=== PATIENT | female | born 1955 | race African-American/Black ===

== ENCOUNTER 2017-04-17 19:30 | Outpatient (CLI) | payer OTHER | END 2017-04-17 19:31 | disposition home or self-care (01) | LOC: SLEEPLAB 19:30 | PROVIDERS: ATTEND Internal Medicine | DX: G47.33 Obstructive sleep apnea (adult) (pediatric) (principal); E11.9 Type 2 diabetes mellitus without complications; R09.02 Hypoxemia; I10 Essential (primary) hypertension; R51 Headache; R35.1 Nocturia | CPT/HCPCS: 95811 ==

== ENCOUNTER 2017-11-25 15:37 | Emergency (ER) | payer OTHER | END 2017-11-25 16:45 | disposition home or self-care (01) | LOC: ERS 15:37 | DX: F41.0 Panic disorder [episodic paroxysmal anxiety] (principal); E11.9 Type 2 diabetes mellitus without complications; J44.9 Chronic obstructive pulmonary disease, unspecified; I10 Essential (primary) hypertension; F17.210 Nicotine dependence, cigarettes, uncomplicated; Z79.82 Long term (current) use of aspirin; Z79.899 Other long term (current) drug therapy | CPT/HCPCS: 93005 ==

== ENCOUNTER 2018-08-10 14:46 | Outpatient (CLI) | payer OTHER ==
--- NOTE | 2018-08-10 15:13 | RAD ---
FOUR VIEWS LEFT KNEE: Comparison: None. History: Left knee pain. FINDINGS: Four views of the left knee shows no evidence of acute fracture or dislocation. A small knee effusion is seen. Mild degenerative changes are seen in all three compartments. IMPRESSION: Mild left knee degenerative change without acute osseous abnormality. POS: [facility]
== END 2018-08-10 14:47 | disposition home or self-care (01) ==
LOC: RAD-FRANK 14:46
PROVIDERS: ATTEND Nurse Practitioner
DX: M17.12 Unilateral primary osteoarthritis, left knee (principal)

== ENCOUNTER 2019-02-14 13:25 | Outpatient (CLI) | payer OTHER ==
--- NOTE | 2019-02-14 15:29 | CT ---
CT PULMONARY LUNG SCAN CHEST WITHOUT CONTRAST: 02/14/19 HISTORY: Personal history of nicotine dependence. Smoker. COMPARISON: CT chest 03/11/17. FINDINGS: Lung screening specific (lung-RADS): Negative. No suspicious pulmonary nodules per lung RADS criteria . Potentially significant incidental (lung RADS category S): Negative. Pulmonary incidentals: Mild centrilobular emphysema. There is multifocal scattered areas of periphera l pleural scarring which are unchanged from the comparison examinations. A few upper lobe predominant centrilobular ground glass nodules indicating respiratory bronchiolitis. There is a ground glass nod ule right middle lobe measuring 8 mm. Other incidentals: Mild mid thoracic spine degenerative changes. No displaced rib fracture. Subtle hy podensity in the superior pole of the left kidney is unchanged. IMPRESSION: 1. Lung RADS category 2: Benign appearance or behavior. Recommend continued annual screening wit h low dose CT in 12 months. 2. Lung RADS category S: Negative. No new or unknown potentially significant incidental findings requiring urgent additional evaluation. POS: [facility]
== END 2019-02-14 13:26 | disposition home or self-care (01) ==
LOC: CT 13:25
PROVIDERS: ATTEND Nurse Practitioner
DX: F17.210 Nicotine dependence, cigarettes, uncomplicated (principal)
CPT/HCPCS: G0297

== ENCOUNTER 2020-02-29 12:56 | Outpatient (CLI) | payer OTHER ==
--- NOTE | 2020-02-29 13:46 | CT ---
CT CHEST WITHOUT CONTRAST: 02/29/20 Axial tomograms obtained following a low dose screening protocol. INDICATIONS: History of nicotine dependence. Follow-up pulmonary nodules. COMPARISON: Comparison made to CT chest 02/14/19. FINDINGS: There is a new nodule in the medial right upper lobe seen on axial image 27 measuring 8 mm. This is a suspicious nodule given its appearance since last exam. Other scattered pulmonary nodules appear stable. A pleural based nodule in the right middle lobe vandana uring 8 mm is unchanged. There is a tiny 3 mm nodule in the right lung base stable. There is a 4 mm n odule in the posterior left lower lobe which is stable. The previously described chronic lung parench ymal changes are again noted. Mediastinum unremarkable. Osseous structures and upper abdomen unremark able and stable. IMPRESSION: A new 8 mm nodule in the right upper lobe since prior exam. This is a suspicious finding. This lesion is a lung RADS category 4B. Recommend further evaluation with PET scan. POS: [facility]
== END 2020-02-29 12:57 | disposition home or self-care (01) ==
LOC: BICCT 12:56
PROVIDERS: ATTEND Nurse Practitioner
DX: R91.8 Other nonspecific abnormal finding of lung field (principal); R91.1 Solitary pulmonary nodule
CPT/HCPCS: 71250

== ENCOUNTER 2020-06-20 09:46 | Outpatient (CLI) | payer OTHER ==
--- NOTE | 2020-06-20 13:38 | CT ---
CT THORAX WITHOUT IV CONTRAST: Date: 06/20/2020 INDICATION: Follow-up pulmonary nodule. COMPARISON: Prior CT of the thorax dated 02/29/2020, 02/14/2019, and 03/11/2017. FINDINGS: The 8 mm suspicious pulmonary nodule within the right lung apex identified on the comparison CT dated has reduced in size and now measures 4.0 mm and likely is related to an inflammatory nodul e. Subpleural pulmonary nodule within the right middle lobe measuring 7.0 mm is stable and benign. Th e 9.0 mm subpleural pulmonary nodule in the right lower lobe is stable and benign. The 4.0 mm pulmona ry nodule in the left lower lobe is stable and benign. No new suspicious pulmonary nodule is evident. There is slightly more pronounced subsegmental volume loss in the lingula. There are scattered vasc ular calcifications. There are stable bilateral adrenal adenomas. The gallbladder is surgically absen t. There is scattered degenerative and osteoarthritic change. No definite acute osseous abnormality i s evident. IMPRESSION: 1. Decrease in size of the right apical pulmonary nodule likely reflecting an inflammatory nodule. 2. Stable bilateral pulmonary nodules, stable since 2016, and considered benign. 3. Stable bilateral adrenal adenomas. 4. Other chronic findings as above. POS: [facility]
== END 2020-06-20 09:47 | disposition home or self-care (01) ==
LOC: BICCT 09:46
PROVIDERS: ATTEND Internal Medicine Critical Care Medicine
DX: R91.8 Other nonspecific abnormal finding of lung field (principal); D35.02 Benign neoplasm of left adrenal gland; D35.01 Benign neoplasm of right adrenal gland; I70.90 Unspecified atherosclerosis; M19.90 Unspecified osteoarthritis, unspecified site; Z90.49 Acquired absence of other specified parts of digestive tract
CPT/HCPCS: 71250

== ENCOUNTER 2020-12-23 09:21 | Outpatient (CLI) | payer OTHER | END 2020-12-23 09:22 | disposition home or self-care (01) | LOC: BICCT 09:21 | PROVIDERS: ATTEND Internal Medicine Critical Care Medicine | DX: R91.1 Solitary pulmonary nodule (principal); J44.9 Chronic obstructive pulmonary disease, unspecified | CPT/HCPCS: 71250 ==

== ENCOUNTER 2021-06-23 13:13 | Outpatient (CLI) | payer OTHER | END 2021-06-23 13:14 | disposition home or self-care (01) | LOC: BICMAMMO 13:13 | PROVIDERS: ATTEND Nurse Practitioner | DX: Z12.31 Encounter for screening mammogram for malignant neoplasm of breast (principal) | CPT/HCPCS: 77063; 77067 ==

== ENCOUNTER 2022-04-06 15:50 | Inpatient (IN) | payer MEDICARE, OTHER ==
[~2022-04-06 15:50] MED LIST: Iopamidol-370 76% 500 ML 1 ML ONE
[2022-04-06 16:25] LABS: #Eosinphils 0.1 thou/uL (0.0-0.7); #Lymphocytes 1.5 thou/uL (1.20-3.40); #Monocytes 0.5 thou/uL (0.11-0.59); #Neutrophils 3.9 thou/uL (1.40-6.50); %Basophils 0.6 % (0.0-1.0); %Eosinophils 1.1 % (0.0-10.0); %Lymphocytes 24.7 % (21.0-51.0); %Monocytes 7.6 % (0.0-10.0); Hemoglobin 15.8 g/dL (12.0-16.0); Mean Corpuscular HGB CONC 29.6 g/dL (32.0-36.0); Mean Corpuscular Hemoglobin 25.2 pg (27.0-31.0); Mean Corpuscular Volume 85.3 fL (78.0-98.0); Mean Platelet Volume 11.9 fL (7.4-10.4); Platelet Count 154 thou/uL (130-400); RBC Distribution Width 17.7 % (11.5-14.5); Red Blood Cell (RBC) Count 6.27 mill/uL (4.20-5.40); White Blood Cell (WBC) Count 5.9 thou/uL (4.8-10.8)
[2022-04-06 16:44] LABS: ALT (SGPT) 10 U/L (8-55); AST (SGOT) 11 U/L (5-34); Albumin 3.9 g/dL (3.4-4.8); Alkaline Phosphatase 105 U/L (40-110); Anion Gap 18 mmol/L (10-20); BUN (Urea Nitrogen) 19 mg/dL (9.8-20.1); Bilirubin, Total 1.5 mg/dL (0.2-1.2); Calc. Creatinine Clearance 0 mL/min (70-130); Calcium 9.8 mg/dL (7.8-10.44); Carbon Dioxide 27 mmol/L (23-31); Chloride 99 mmol/L (98-107); Estimated GFR 46; Globulin 3.2 g/dL (2.4-3.5); Glucose 174 mg/dL (80-115); Potassium 4.2 mmol/L (3.5-5.1); Protein, Total 7.1 g/dL (5.8-8.1); Sodium 140 mmol/L (136-145)
[2022-04-06] MEDS ORDERED: Furosemide 40 MG/4 ML VIAL ONE (18:27)
[2022-04-06 20:06] LABS: Lactic Acid 1.5 mmol/L (0.5-2.2)
[2022-04-06] MEDS ORDERED: Acetaminophen 325 MG TAB PO PRN (21:32)
[2022-04-06] MEDS ORDERED: Ondansetron PF 4 MG/2 ML Vial IVP PRN (21:32)
[2022-04-06] MEDS ORDERED: HumaLOG 300 UNITS/3 ML VIAL SC PRN (21:35)
[2022-04-06] MEDS ORDERED: Dextrose 5% in Water 1,000 ML IV PRN (21:35)
[2022-04-06] MEDS ORDERED: Dextrose 50% Abboject 50 ML SYRINGE SLOW IVP PRN (21:35)
[2022-04-07 00:14] VITALS: BMI 29.7
[2022-04-07 05:02] LABS: #Eosinphils 0.1 thou/uL (0.0-0.7); #Lymphocytes 1.4 thou/uL (1.20-3.40); #Monocytes 0.5 thou/uL (0.11-0.59); #Neutrophils 4.5 thou/uL (1.40-6.50); %Basophils 0.6 % (0.0-1.0); %Eosinophils 1.4 % (0.0-10.0); %Lymphocytes 21.2 % (21.0-51.0); %Neutrophils 68.8 % (42.0-75.0); Hemoglobin 15.6 g/dL (12.0-16.0); Mean Corpuscular HGB CONC 30.3 g/dL (32.0-36.0); Mean Corpuscular Hemoglobin 25.9 pg (27.0-31.0); Mean Corpuscular Volume 85.8 fL (78.0-98.0); Mean Platelet Volume 11.3 fL (7.4-10.4); Platelet Count 147 thou/uL (130-400); RBC Distribution Width 17.9 % (11.5-14.5); Red Blood Cell (RBC) Count 5.99 mill/uL (4.20-5.40); White Blood Cell (WBC) Count 6.5 thou/uL (4.8-10.8)
[2022-04-07 05:14] LABS: Anion Gap 15 mmol/L (10-20); BUN (Urea Nitrogen) 21 mg/dL (9.8-20.1); Calc. Creatinine Clearance 51 mL/min (70-130); Calcium 10.2 mg/dL (7.8-10.44); Carbon Dioxide 35 mmol/L (23-31); Chloride 95 mmol/L (98-107); Estimated GFR 42; Glucose 190 mg/dL (80-115); Sodium 141 mmol/L (136-145)
[2022-04-07] MEDS ORDERED: Furosemide 40 MG/4 ML VIAL SLOW IVP SCH (06:00)
[2022-04-07] MEDS: Heparin 5,000 UNITS/ML VIAL SC SCH ×2 (11:21→20:38)
[2022-04-07] MEDS ORDERED: Non-Formulary Item 1 EACH (Albuterol Sulfate [Proair Digihaler] 90 MCG Aer.Pw.Bas) INH SCH (13:30)
[2022-04-07] MEDS ORDERED: Electrolyte Replacement Protocol FS PRN (14:15)
[2022-04-07] MEDS ORDERED: predniSONE 20 MG TAB PO SCH (16:45)
[2022-04-07] MEDS: Azithromycin 500 MG in Sodium Chloride 0.9% 250 ML 250 ML IVPB SCH (17:51)
[2022-04-07] MEDS: Carvedilol 6.25 MG TAB PO SCH (17:51)
[2022-04-07] MEDS: Mometasone/Formoterol 200/5 60 PUFF INH SCH (19:19)
[2022-04-07] MEDS: guaiFENesin ER 600 MG TAB PO SCH (20:38)
[2022-04-07] MEDS: Atorvastatin Calcium 20 MG TAB PO SCH (20:39)
[2022-04-08 05:25] LABS: ALT (SGPT) 7 U/L (8-55); AST (SGOT) 8 U/L (5-34); Albumin 3.7 g/dL (3.4-4.8); Alkaline Phosphatase 96 U/L (40-110); Anion Gap 18 mmol/L (10-20); BUN (Urea Nitrogen) 19 mg/dL (9.8-20.1); Bilirubin, Total 1.2 mg/dL (0.2-1.2); Calc. Creatinine Clearance 60 mL/min (70-130); Calcium 9.9 mg/dL (7.8-10.44); Carbon Dioxide 34 mmol/L (23-31); Chloride 94 mmol/L (98-107); Estimated GFR 51; Globulin 3.3 g/dL (2.4-3.5); Glucose 217 mg/dL (80-115); Magnesium 1.5 mg/dL (1.6-2.6); Potassium 4.5 mmol/L (3.5-5.1); Sodium 141 mmol/L (136-145)
[2022-04-08 05:30] LABS: #Lymphocytes 0.7 thou/uL (1.20-3.40); #Monocytes 0.2 thou/uL (0.11-0.59); #Neutrophils 3.8 thou/uL (1.40-6.50); %Eosinophils 0.3 % (0.0-10.0); %Lymphocytes 14.4 % (21.0-51.0); %Monocytes 4.2 % (0.0-10.0); %Neutrophils 81.1 % (42.0-75.0); Hemoglobin 15.8 g/dL (12.0-16.0); Mean Corpuscular Hemoglobin 25.8 pg (27.0-31.0); Mean Corpuscular Volume 86.2 fL (78.0-98.0); Mean Platelet Volume 11.5 fL (7.4-10.4); Platelet Count 163 thou/uL (130-400); RBC Distribution Width 17.5 % (11.5-14.5); Red Blood Cell (RBC) Count 6.13 mill/uL (4.20-5.40); White Blood Cell (WBC) Count 4.7 thou/uL (4.8-10.8)
[2022-04-08] MEDS: HumaLOG 300 UNITS/3 ML VIAL SC PRN ×4 (06:49→22:13)
[2022-04-08] MEDS: Mometasone/Formoterol 200/5 60 PUFF INH SCH ×2 (07:09→18:55)
[2022-04-08] MEDS ORDERED: Magnesium 2 GM/50 ML(in water) 2 GM in Premix Bag 1 BAG IVPB SCH (08:00)
[2022-04-08] MEDS ORDERED: Cholecalciferol (Vitamin D3) 400 UNITS TAB PO SCH (09:00)
[2022-04-08] MEDS ORDERED: Furosemide 40 MG/4 ML VIAL SLOW IVP SCH (09:00)
[2022-04-08] MEDS: Carvedilol 6.25 MG TAB PO SCH ×2 (09:17→16:51)
[2022-04-08] MEDS: Cyanocobalamin (Vitamin B-12) 1,000 MCG TAB PO SCH (09:18)
[2022-04-08] MEDS: Cholecalciferol 1,000 UNITS (25 MCG) TAB PO SCH (09:18)
[2022-04-08] MEDS: Heparin 5,000 UNITS/ML VIAL SC SCH ×2 (09:18→20:39)
[2022-04-08] MEDS: guaiFENesin ER 600 MG TAB PO SCH ×2 (09:18→20:39)
[2022-04-08] MEDS: Furosemide 20 MG TAB PO SCH (09:19)
[2022-04-08] MEDS: Ferrous Sulfate 325 MG TAB PO SCH (09:19)
[2022-04-08] MEDS: Loratadine 10 MG TAB PO SCH (09:19)
[2022-04-08] MEDS: Fluticasone Propionate Nasal Spray 16 gm Bottle NASAL SCH (09:19)
[2022-04-08] MEDS: Amlodipine 10 MG TAB PO SCH (09:19)
[2022-04-08] MEDS: Famotidine 20 MG TAB PO SCH (09:19)
[2022-04-08] MEDS: Aspirin 81 mg Enteric Coated Tablet PO SCH (09:19)
[2022-04-08] MEDS: predniSONE 20 MG TAB PO SCH (09:19)
[2022-04-08] MEDS ORDERED: Insulin Glargine 30 UNITS/0.3 ML VIAL SC SCH (14:30)
[2022-04-08] MEDS: Azithromycin 500 MG in Sodium Chloride 0.9% 250 ML 250 ML IVPB SCH (16:51)
[2022-04-08] MEDS: Atorvastatin Calcium 20 MG TAB PO SCH (20:39)
[2022-04-09 05:18] LABS: #Lymphocytes 0.7 thou/uL (1.20-3.40); #Monocytes 0.4 thou/uL (0.11-0.59); #Neutrophils 3.8 thou/uL (1.40-6.50); %Eosinophils 0.1 % (0.0-10.0); %Lymphocytes 13.3 % (21.0-51.0); %Monocytes 8.9 % (0.0-10.0); %Neutrophils 77.7 % (42.0-75.0); Hemoglobin 15.6 g/dL (12.0-16.0); Mean Corpuscular Hemoglobin 25.8 pg (27.0-31.0); Mean Corpuscular Volume 86.1 fL (78.0-98.0); Mean Platelet Volume 11.9 fL (7.4-10.4); Platelet Count 172 thou/uL (130-400); RBC Distribution Width 17.4 % (11.5-14.5); Red Blood Cell (RBC) Count 6.06 mill/uL (4.20-5.40); White Blood Cell (WBC) Count 4.9 thou/uL (4.8-10.8)
[2022-04-09 05:34] LABS: Anion Gap 16 mmol/L (10-20); BUN (Urea Nitrogen) 25 mg/dL (9.8-20.1); Calc. Creatinine Clearance 62 mL/min (70-130); Calcium 10.5 mg/dL (7.8-10.44); Carbon Dioxide 31 mmol/L (23-31); Chloride 95 mmol/L (98-107); Estimated GFR 54; Glucose 235 mg/dL (80-115); Magnesium 2.2 mg/dL (1.6-2.6); Potassium 4.6 mmol/L (3.5-5.1); Sodium 137 mmol/L (136-145)
[2022-04-09] MEDS: HumaLOG 300 UNITS/3 ML VIAL SC PRN ×4 (06:21→21:17)
[2022-04-09] MEDS: Mometasone/Formoterol 200/5 60 PUFF INH SCH ×2 (07:08→19:11)
[2022-04-09] MEDS ORDERED: Insulin Glargine 30 UNITS/0.3 ML VIAL SC SCH (09:00)
[2022-04-09] MEDS: Aspirin 81 mg Enteric Coated Tablet PO SCH (09:03)
[2022-04-09] MEDS: Amlodipine 10 MG TAB PO SCH (09:03)
[2022-04-09] MEDS: Spironolactone 25 MG TAB PO SCH (09:03)
[2022-04-09] MEDS: Carvedilol 6.25 MG TAB PO SCH ×2 (09:03→17:12)
[2022-04-09] MEDS: Cholecalciferol 1,000 UNITS (25 MCG) TAB PO SCH (09:03)
[2022-04-09] MEDS: predniSONE 20 MG TAB PO SCH (09:03)
[2022-04-09] MEDS: Ferrous Sulfate 325 MG TAB PO SCH (09:03)
[2022-04-09] MEDS: Cyanocobalamin (Vitamin B-12) 1,000 MCG TAB PO SCH (09:04)
[2022-04-09] MEDS: guaiFENesin ER 600 MG TAB PO SCH ×2 (09:04→21:17)
[2022-04-09] MEDS: Furosemide 20 MG TAB PO SCH (09:04)
[2022-04-09] MEDS: Famotidine 20 MG TAB PO SCH (09:04)
[2022-04-09] MEDS: Loratadine 10 MG TAB PO SCH (09:04)
[2022-04-09] MEDS: Heparin 5,000 UNITS/ML VIAL SC SCH ×2 (09:04→21:17)
[2022-04-09] MEDS: Fluticasone Propionate Nasal Spray 16 gm Bottle NASAL SCH (09:05)
[2022-04-09] MEDS: Azithromycin 500 MG in Sodium Chloride 0.9% 250 ML 250 ML IVPB SCH (17:13)
[2022-04-09] MEDS: Empagliflozin 25 MG TAB PO SCH (21:16)
[2022-04-09] MEDS: metFORMIN 500 MG TAB PO SCH (21:16)
[2022-04-09] MEDS: Insulin Glargine 30 UNITS/0.3 ML VIAL SC SCH (21:17)
[2022-04-09] MEDS: Atorvastatin Calcium 20 MG TAB PO SCH (21:17)
[2022-04-10 05:12] LABS: Anion Gap 14 mmol/L (10-20); BUN (Urea Nitrogen) 22 mg/dL (9.8-20.1); Calc. Creatinine Clearance 68 mL/min (70-130); Calcium 10.5 mg/dL (7.8-10.44); Carbon Dioxide 33 mmol/L (23-31); Chloride 97 mmol/L (98-107); Estimated GFR 59; Glucose 171 mg/dL (80-115); Potassium 4.5 mmol/L (3.5-5.1); Sodium 139 mmol/L (136-145)
[2022-04-10] MEDS ORDERED: Magnesium 2 GM/50 ML(in water) 2 GM in Premix Bag 1 BAG IVPB SCH (06:00)
[2022-04-10] MEDS: Mometasone/Formoterol 200/5 60 PUFF INH SCH (06:42)
[2022-04-10] MEDS: Carvedilol 6.25 MG TAB PO SCH (08:07)
[2022-04-10] MEDS: Ferrous Sulfate 325 MG TAB PO SCH (08:08)
[2022-04-10] MEDS: Spironolactone 25 MG TAB PO SCH (08:09)
[2022-04-10] MEDS: predniSONE 20 MG TAB PO SCH (08:09)
[2022-04-10] MEDS: Amlodipine 10 MG TAB PO SCH (08:10)
[2022-04-10] MEDS: Aspirin 81 mg Enteric Coated Tablet PO SCH (08:10)
[2022-04-10] MEDS: Cholecalciferol 1,000 UNITS (25 MCG) TAB PO SCH (08:11)
[2022-04-10] MEDS: Empagliflozin 25 MG TAB PO SCH (08:12)
[2022-04-10] MEDS: Cyanocobalamin (Vitamin B-12) 1,000 MCG TAB PO SCH (08:12)
[2022-04-10] MEDS: Furosemide 20 MG TAB PO SCH (08:13)
[2022-04-10] MEDS: Famotidine 20 MG TAB PO SCH (08:13)
[2022-04-10] MEDS: Heparin 5,000 UNITS/ML VIAL SC SCH (08:14)
[2022-04-10] MEDS: guaiFENesin ER 600 MG TAB PO SCH (08:14)
[2022-04-10] MEDS: Insulin Glargine 30 UNITS/0.3 ML VIAL SC SCH (08:15)
[2022-04-10] MEDS: metFORMIN 500 MG TAB PO SCH (08:16)
[2022-04-10] MEDS: Loratadine 10 MG TAB PO SCH (08:16)
[2022-04-10] MEDS: Fluticasone Propionate Nasal Spray 16 gm Bottle NASAL SCH (08:25)
[2022-04-10] MEDS: HumaLOG 300 UNITS/3 ML VIAL SC PRN (12:34)
[2022-04-10 16:34] VITALS: BP 103/61; TEMP 97.6
== END 2022-04-10 17:10 | disposition home or self-care (01) | DRG 291 ==
LOC: ERS 15:50 → ERHOLD 18:31 → OBSVTOIN 21:33 → 2SW 21:53
PROVIDERS: ADMIT Internal Medicine; ATTEND Internal Medicine
PROC: 5A09357 Assistance with Respiratory Ventilation, Less than 24 Consecutive Hours, Continuous Positive Airway Pressure (ICD-10-PCS; principal; 2022-04-06)
DX: I13.0 Hypertensive heart and chronic kidney disease with heart failure and stage 1 through stage 4 chronic kidney disease, or unspecified chronic kidney disease (principal); Z20.822 Contact with and (suspected) exposure to COVID-19; Z51.5 Encounter for palliative care; I50.33 Acute on chronic diastolic (congestive) heart failure; J96.21 Acute and chronic respiratory failure with hypoxia; J44.1 Chronic obstructive pulmonary disease with (acute) exacerbation; N17.9 Acute kidney failure, unspecified; E87.2 Acidosis; J96.12 Chronic respiratory failure with hypercapnia; G47.33 Obstructive sleep apnea (adult) (pediatric); E78.5 Hyperlipidemia, unspecified; N18.30 Chronic kidney disease, stage 3 unspecified; E83.42 Hypomagnesemia; E11.65 Type 2 diabetes mellitus with hyperglycemia; T38.0X5A Adverse effect of glucocorticoids and synthetic analogues, initial encounter; E11.22 Type 2 diabetes mellitus with diabetic chronic kidney disease; R74.8 Abnormal levels of other serum enzymes; Z28.21 Immunization not carried out because of patient refusal; Z99.81 Dependence on supplemental oxygen; Z99.89 Dependence on other enabling machines and devices; Z87.891 Personal history of nicotine dependence; Z90.49 Acquired absence of other specified parts of digestive tract; Z98.51 Tubal ligation status; Z82.49 Family history of ischemic heart disease and other diseases of the circulatory system
CPT/HCPCS: 36415; 36416; 71045; 71275; 80048; 80053; 83605; 83735; 83880; 84484; 85025; 87040; 93005; 94640; 94660; J0456; J1644; J1815; J1940; J3475; J7050; J7512; J7620; Q9967; U0003; U0005

== ENCOUNTER 2022-05-05 13:11 | Outpatient (CLI) | payer MEDICARE, OTHER | END 2022-05-05 13:12 | disposition home or self-care (01) | LOC: RAD 13:11 | PROVIDERS: ATTEND Internal Medicine Critical Care Medicine | DX: I50.32 Chronic diastolic (congestive) heart failure (principal) | CPT/HCPCS: 71046 ==

== ENCOUNTER 2023-02-10 12:10 | Outpatient (CLI) | payer MEDICARE, OTHER | END 2023-02-10 12:11 | disposition home or self-care (01) | LOC: RAD 12:10 | PROVIDERS: ATTEND Internal Medicine Critical Care Medicine | DX: R06.00 Dyspnea, unspecified (principal) | CPT/HCPCS: 71046 ==

== ENCOUNTER 2023-05-10 07:39 | Inpatient (IN) | payer MEDICARE, OTHER ==
[2023-05-10] MEDS ORDERED: cefTRIAXone (ROCEPHIN) 2 GM VIAL ONE (08:16)
[2023-05-10] MEDS ORDERED: Ipratropium/Albuterol 3 ML NEB ONE (08:28)
[2023-05-10 08:30] LABS: Hematocrit 54.1 % (36.0-47.0); Hemoglobin 15.1 g/dL (12.0-16.0); Mean Corpuscular HGB CONC 27.9 g/dL (32.0-36.0); Mean Corpuscular Hemoglobin 25.1 pg (27.0-31.0); Mean Corpuscular Volume 89.9 fl (78.0-98.0); Mean Platelet Volume 11.5 fL (7.4-10.4); Platelet Count 200 10x3/uL (130-400); RBC Distribution Width 18.9 % (11.5-14.5); Red Blood Cell (RBC) Count 6.02 mill/uL (4.20-5.40); White Blood Cell (WBC) Count 6.5 10x3/uL (4.8-10.8)
[2023-05-10 08:56] LABS: Actual Bicarbonate (HCO3v) 27.9 mEq/L (22-28); Analyzer IN Cardio ER; Base Excess -2.2 mEq/L (-2.0 to +3.0); Chloride (VBG) 100 mmol/L (98-106); Hematocrit-VBG 48 % (36.0-47.0); Hemoglobin (Hb) 16.4 g/dL (11.7-16.1); Potassium (VBG) 4.05 mmol/L (3.70-5.30); Sodium 140 mmol/L (133-146)
[2023-05-10 08:57] LABS: Delete Auto Diff?? YES; Manual Diff?? YES
[2023-05-10 08:58] LABS: ALT (SGPT) 24 U/L (8-55); AST (SGOT) 26 U/L (5-34); Albumin 3.6 g/dL (3.4-4.8); Alkaline Phosphatase 136 U/L (40-110); Anion Gap 15 mmol/L (10-20); BUN (Urea Nitrogen) 17 mg/dL (9.8-20.1); Bilirubin, Total 1.2 mg/dL (0.2-1.2); Calc. Creatinine Clearance 0 mL/min (70-130); Calcium 9.4 mg/dL (7.8-10.44); Carbon Dioxide 27 mmol/L (23-31); Chloride 102 mmol/L (98-107); Estimated GFR 44; Globulin 2.8 g/dL (2.4-3.5); Glucose 235 mg/dL (80-115); Magnesium 1.5 mg/dL (1.6-2.6); Potassium 4.1 mmol/L (3.5-5.1); Protein, Total 6.4 g/dL (5.8-8.1); Sodium 140 mmol/L (136-145)
[2023-05-10 09:01] LABS: Troponin I 0.042 ng/mL (< 0.028)
[2023-05-10 09:37] LABS: Band 6 % (5-11); Lymphocytes 6 % (21-51); Monocytes 10 % (0-10); Neutrophil 78 % (42-75); Nucleated RBC (Manual Ct) 2 % (0)
[2023-05-10 09:38] LABS: Platelet Adequacy Comment Appears Adequate; RBC Morph Comment Within Normal Limits
[2023-05-10] MEDS ORDERED: Magnesium 2 GM/50 ML BAG (IN WATER) ONE (09:38)
[2023-05-10] MEDS ORDERED: Furosemide 40 MG/4 ML VIAL ONE (10:07)
[2023-05-10] MEDS ORDERED: Acetaminophen 325 MG TAB PO PRN (10:41)
[2023-05-10] MEDS ORDERED: HYDROcodone/Acetaminophen 5/325 mg Tablet PO PRN (10:41)
[2023-05-10] MEDS ORDERED: Ondansetron PF 4 MG/2 ML Vial IVP PRN (10:41)
[2023-05-10] MEDS ORDERED: Senokot S 8.6-50 MG TAB PO PRN (10:41)
[2023-05-10] MEDS ORDERED: Ipratropium/Albuterol 3 ML NEB NEB PRN (10:44)
[2023-05-10] MEDS ORDERED: Dextrose 50% Abboject 50 ML SYRINGE SLOW IVP PRN (10:59)
[2023-05-10] MEDS ORDERED: Glucagon 1 MG/ML KIT IM PRN (10:59)
[2023-05-10] MEDS ORDERED: Dextrose 5% in Water 1,000 ML IV PRN (10:59)
[2023-05-10] MEDS ORDERED: Albumin 25% 25 GM/100 ML BOT IVPB SCH (11:00)
[2023-05-10 11:42] LABS: Troponin I 0.038 ng/mL (< 0.028)
[2023-05-10] MEDS ORDERED: FLU VACC QS2023(65UP)/MF59C/PF 60 MCG/0.5 ML SYRINGE IM ONE (12:30)
[2023-05-10] MEDS: Cefepime 1 GM in Sodium Chloride 0.9% 100 ML IVPB SCH (12:35)
[2023-05-10] MEDS: methylPREDNISolone Sod Succ 40 MG VIAL IVP SCH ×2 (13:01→20:39)
[2023-05-10] MEDS: Furosemide 40 MG/4 ML VIAL SLOW IVP SCH (13:01)
[2023-05-10] MEDS: Ipratropium/Albuterol 3 ML NEB NEB SCH ×3 (14:04→21:42)
[2023-05-10 14:40] LABS: Troponin I 0.027 ng/mL (< 0.028)
[2023-05-10 17:09] LABS: Actual Bicarbonate (HCO3v) 27.2 mEq/L (22-28); Base Excess -0.5 mEq/L (-2.0 to +3.0); Calcium, Ionized (venous) 1.11 mmol/L (1.16-1.32); Chloride (VBG) 102 mmol/L (98-106); Hematocrit-VBG 47 % (36.0-47.0); Hemoglobin (Hb) 16.1 g/dL (11.7-16.1); Potassium (VBG) 4.64 mmol/L (3.70-5.30); Sodium 141 mmol/L (133-146)
[2023-05-10] MEDS: Famotidine/PF 20 mg/2ml Vial SLOW IVP SCH (20:39)
[2023-05-10] MEDS: guaiFENesin ER 600 MG TAB PO SCH (20:39)
[2023-05-10] MEDS: HumaLOG 300 UNITS/3 ML VIAL SC PRN (21:31)
[2023-05-11] MEDS: Cefepime 1 GM in Sodium Chloride 0.9% 100 ML IVPB SCH ×3 (00:28→23:55)
[2023-05-11] MEDS: Ipratropium/Albuterol 3 ML NEB NEB SCH ×6 (01:49→23:56)
[2023-05-11 04:00] LABS: Actual Bicarbonate (HCO3v) 27.1 mEq/L (22-28); Base Excess -1.9 mEq/L (-2.0 to +3.0); Calcium, Ionized (venous) 1.23 mmol/L (1.16-1.32); Chloride (VBG) 102 mmol/L (98-106); Hematocrit-VBG 50 % (36.0-47.0); Hemoglobin (Hb) 17.1 g/dL (11.7-16.1); Potassium (VBG) 4.28 mmol/L (3.70-5.30); Sodium 143 mmol/L (133-146)
[2023-05-11 04:32] LABS: Anion Gap 19 mmol/L (10-20); BUN (Urea Nitrogen) 23 mg/dL (9.8-20.1); Calc. Creatinine Clearance 52 mL/min (70-130); Calcium 9.8 mg/dL (7.8-10.44); Carbon Dioxide 24 mmol/L (23-31); Chloride 103 mmol/L (98-107); Estimated GFR 39; Glucose 207 mg/dL (80-115); Potassium 4.3 mmol/L (3.5-5.1); Sodium 142 mmol/L (136-145)
[2023-05-11 04:38] LABS: #Monocytes 0.1 thou/uL (0.11-0.59); #Neutrophils 4.6 thou/uL (1.40-6.50); %Basophils 0.2 % (0.0-1.0); %Lymphocytes 8.5 % (21.0-51.0); %Monocytes 1.5 % (0.0-10.0); %Neutrophils 89.2 % (42.0-75.0); Hematocrit 56.8 % (36.0-47.0); Hemoglobin 15.7 g/dL (12.0-16.0); Mean Corpuscular HGB CONC 27.6 g/dL (32.0-36.0); Mean Corpuscular Hemoglobin 24.7 pg (27.0-31.0); Mean Corpuscular Volume 89.4 fl (78.0-98.0); Mean Platelet Volume 11.7 fL (7.4-10.4); Platelet Count 185 10x3/uL (130-400); RBC Distribution Width 19.3 % (11.5-14.5); Red Blood Cell (RBC) Count 6.35 mill/uL (4.20-5.40); White Blood Cell (WBC) Count 5.2 10x3/uL (4.8-10.8)
[2023-05-11 05:09] VITALS: BMI 31.5
[2023-05-11] MEDS: Furosemide 40 MG/4 ML VIAL SLOW IVP SCH ×3 (05:42→15:19)
[2023-05-11] MEDS: methylPREDNISolone Sod Succ 40 MG VIAL IVP SCH ×2 (05:42→10:56)
[2023-05-11] MEDS: HumaLOG 300 UNITS/3 ML VIAL SC PRN ×4 (06:42→23:54)
[2023-05-11] MEDS: Famotidine/PF 20 mg/2ml Vial SLOW IVP SCH ×2 (07:59→19:47)
[2023-05-11] MEDS: guaiFENesin ER 600 MG TAB PO SCH ×2 (07:59→19:47)
[2023-05-12] MEDS: Ipratropium/Albuterol 3 ML NEB NEB SCH ×4 (01:59→16:54)
[2023-05-12] MEDS: Furosemide 40 MG/4 ML VIAL SLOW IVP SCH ×2 (06:32→14:16)
[2023-05-12] MEDS: Famotidine/PF 20 mg/2ml Vial SLOW IVP SCH (09:09)
[2023-05-12] MEDS: methylPREDNISolone Sod Succ 40 MG VIAL IVP SCH (09:09)
[2023-05-12] MEDS: guaiFENesin ER 600 MG TAB PO SCH (09:09)
[2023-05-12 09:33] LABS: #Monocytes 0.6 thou/uL (0.11-0.59); #Neutrophils 5.3 thou/uL (1.40-6.50); %Basophils 0.1 % (0.0-1.0); %Eosinophils 0.3 % (0.0-10.0); %Lymphocytes 14.6 % (21.0-51.0); %Monocytes 8.9 % (0.0-10.0); %Neutrophils 75.8 % (42.0-75.0); Hemoglobin 15.6 g/dL (12.0-16.0); Mean Corpuscular HGB CONC 28.9 g/dL (32.0-36.0); Mean Corpuscular Hemoglobin 24.6 pg (27.0-31.0); Mean Corpuscular Volume 85.2 fl (78.0-98.0); Mean Platelet Volume 11.3 fL (7.4-10.4); Platelet Count 187 10x3/uL (130-400); RBC Distribution Width 19.1 % (11.5-14.5); Red Blood Cell (RBC) Count 6.34 mill/uL (4.20-5.40)
[2023-05-12 09:54] LABS: Anion Gap 15 mmol/L (10-20); BUN (Urea Nitrogen) 33 mg/dL (9.8-20.1); Calc. Creatinine Clearance 48 mL/min (70-130); Calcium 10.4 mg/dL (7.8-10.44); Carbon Dioxide 29 mmol/L (23-31); Chloride 100 mmol/L (98-107); Estimated GFR 35; Glucose 264 mg/dL (80-115); Potassium 3.8 mmol/L (3.5-5.1); Sodium 140 mmol/L (136-145)
[2023-05-12 11:04] LABS: Burr Cells MARKED = >16 cells HPF (0-1); CellaVision Operator ID LAB.GE; Platelet Adequacy Comment Platelets Normal; Polychromasia MODERATE = 3-4 cells HPF (0-2)
[2023-05-12] MEDS: Cefepime 1 GM in Sodium Chloride 0.9% 100 ML IVPB SCH (11:04)
[2023-05-12] MEDS: HumaLOG 300 UNITS/3 ML VIAL SC PRN ×2 (11:10→16:08)
[2023-05-12 15:42] VITALS: BP 125/69; TEMP 97.7
[2023-05-13] MEDS ORDERED: Famotidine/PF 20 mg/2ml Vial SLOW IVP SCH (09:00)
== END 2023-05-12 16:35 | disposition home or self-care (01) | DRG 193 ==
LOC: ERS 07:39 → IMCU/EMU 09:45 → T4-B 05-11 18:20 → IMCU/EMU 05-11 18:21 → T4-B 05-11 21:09
PROVIDERS: ADMIT Family Medicine; ATTEND Internal Medicine
PROC: 5A09357 Assistance with Respiratory Ventilation, Less than 24 Consecutive Hours, Continuous Positive Airway Pressure (ICD-10-PCS; principal; 2023-05-10)
PROC: 30233J1 Transfusion of Nonautologous Serum Albumin into Peripheral Vein, Percutaneous Approach (ICD-10-PCS; 2023-05-10)
DX: J18.9 Pneumonia, unspecified organism (principal); G93.41 Metabolic encephalopathy; I50.33 Acute on chronic diastolic (congestive) heart failure; J96.21 Acute and chronic respiratory failure with hypoxia; J96.22 Acute and chronic respiratory failure with hypercapnia; I13.0 Hypertensive heart and chronic kidney disease with heart failure and stage 1 through stage 4 chronic kidney disease, or unspecified chronic kidney disease; J44.1 Chronic obstructive pulmonary disease with (acute) exacerbation; J44.0 Chronic obstructive pulmonary disease with (acute) lower respiratory infection; Z96.651 Presence of right artificial knee joint; E66.01 Morbid (severe) obesity due to excess calories; G47.33 Obstructive sleep apnea (adult) (pediatric); I25.10 Atherosclerotic heart disease of native coronary artery without angina pectoris; I27.21 Secondary pulmonary arterial hypertension; N18.30 Chronic kidney disease, stage 3 unspecified; E11.22 Type 2 diabetes mellitus with diabetic chronic kidney disease; T50.2X5A Adverse effect of carbonic-anhydrase inhibitors, benzothiadiazides and other diuretics, initial encounter; Z98.890 Other specified postprocedural states; Z90.49 Acquired absence of other specified parts of digestive tract; Z99.81 Dependence on supplemental oxygen; Z79.82 Long term (current) use of aspirin; Z79.51 Long term (current) use of inhaled steroids; Z87.891 Personal history of nicotine dependence; Z79.4 Long term (current) use of insulin; Z79.899 Other long term (current) drug therapy; Z91.199 Patient's noncompliance with other medical treatment and regimen due to unspecified reason; Z68.31 Body mass index [BMI] 31.0-31.9, adult
CPT/HCPCS: 36415; 36416; 71045; 80048; 80053; 82805; 83735; 83880; 84439; 84443; 84484; 85025; 90471; 90694; 93005; 93306; 94640; 94660; G0008; J0692; J0696; J1650; J1815; J1940; J2920; J3475; J3490; J7620; P9047; S0028

== ENCOUNTER 2023-05-24 12:00 | Inpatient (IN) | payer MEDICARE, OTHER ==
[2023-05-24] MEDS ORDERED: Ipratropium/Albuterol 3 ML NEB ONE (12:22)
[2023-05-24] MEDS ORDERED: predniSONE 20 MG TAB ONE (12:26)
[2023-05-24] MEDS ORDERED: Magnesium 2 GM/50 ML BAG (IN WATER) ONE (12:26)
[2023-05-24 12:43] LABS: #Basophils 0.1 thou/uL (0.0-0.2); #Eosinphils 0.1 thou/uL (0.0-0.7); #Monocytes 0.8 thou/uL (0.11-0.59); #Neutrophils 8.9 thou/uL (1.40-6.50); %Basophils 0.4 % (0.0-1.0); %Eosinophils 0.6 % (0.0-10.0); %Lymphocytes 11.4 % (21.0-51.0); %Monocytes 7.4 % (0.0-10.0); %Neutrophils 79.3 % (42.0-75.0); Hemoglobin 15.5 g/dL (12.0-16.0); Mean Corpuscular HGB CONC 28.7 g/dL (32.0-36.0); Mean Corpuscular Hemoglobin 24.9 pg (27.0-31.0); Mean Corpuscular Volume 86.8 fl (78.0-98.0); Platelet Count 175 10x3/uL (130-400); RBC Distribution Width 19.4 % (11.5-14.5); Red Blood Cell (RBC) Count 6.22 mill/uL (4.20-5.40); White Blood Cell (WBC) Count 11.2 10x3/uL (4.8-10.8)
[2023-05-24 13:11] LABS: ALT (SGPT) 20 U/L (8-55); AST (SGOT) 26 U/L (5-34); Albumin 3.8 g/dL (3.4-4.8); Alkaline Phosphatase 145 U/L (40-110); Anion Gap 15 mmol/L (10-20); BUN (Urea Nitrogen) 14 mg/dL (9.8-20.1); Bilirubin, Total 1.2 mg/dL (0.2-1.2); Calc. Creatinine Clearance 0 mL/min (70-130); Calcium 9.8 mg/dL (7.8-10.44); Carbon Dioxide 35 mmol/L (23-31); Chloride 96 mmol/L (98-107); Estimated GFR 41; Globulin 2.7 g/dL (2.4-3.5); Glucose 308 mg/dL (80-115); Potassium 3.9 mmol/L (3.5-5.1); Protein, Total 6.5 g/dL (5.8-8.1); Sodium 142 mmol/L (136-145)
[2023-05-24 13:14] LABS: Troponin I 0.032 ng/mL (< 0.028)
[2023-05-24 13:25] LABS: CellaVision Operator ID LAB.KB; Hypochromia SLIGHT = 6-15 cells HPF (0-5); Platelet Adequacy Comment Platelets Normal; Polychromasia SLIGHT = 2-3 cells HPF (0-2)
[2023-05-24] MEDS ORDERED: Acetaminophen 325 MG TAB PO PRN (15:06)
[2023-05-24] MEDS ORDERED: Calcium Carbonate 500 MG ChewTAB PO PRN (15:06)
[2023-05-24] MEDS ORDERED: Ondansetron PF 4 MG/2 ML Vial IVP PRN (15:06)
[2023-05-24] MEDS ORDERED: Senokot S 8.6-50 MG TAB PO PRN (15:06)
[2023-05-24] MEDS ORDERED: Dextrose 50% Abboject 50 ML SYRINGE SLOW IVP PRN (15:07)
[2023-05-24] MEDS ORDERED: Dextrose 5% in Water 1,000 ML IV PRN (15:07)
[2023-05-24] MEDS ORDERED: Glucagon 1 MG/ML KIT IM PRN (15:07)
[2023-05-24] MEDS ORDERED: Furosemide 40 MG/4 ML VIAL ONE (15:07)
[2023-05-24] MEDS ORDERED: Ipratropium/Albuterol 3 ML NEB NEB PRN (15:10)
[2023-05-24] MEDS ORDERED: Benzonatate 100 MG CAP PO PRN (15:10)
[2023-05-24] MEDS ORDERED: HumaLOG 300 UNITS/3 ML VIAL ONE (16:24)
[2023-05-24] MEDS: HumaLOG 300 UNITS/3 ML VIAL SC PRN ×2 (16:30→21:50)
[2023-05-24 17:34] LABS: Troponin I 0.027 ng/mL (< 0.028)
[2023-05-24] MEDS ORDERED: Furosemide 40 MG/4 ML VIAL SLOW IVP SCH (18:00)
[2023-05-24 20:50] LABS: Troponin I 0.016 ng/mL (< 0.028)
[2023-05-24] MEDS: Carvedilol 6.25 MG TAB PO SCH (21:49)
[2023-05-24] MEDS: Atorvastatin Calcium 20 MG TAB PO SCH (21:49)
[2023-05-24] MEDS: Doxycycline 100 MG CAP PO SCH (21:49)
[2023-05-24] MEDS: methylPREDNISolone Sod Succ 40 MG VIAL IVP SCH (21:50)
[2023-05-24] MEDS: Ipratropium/Albuterol 3 ML NEB NEB SCH (23:53)
[2023-05-24 23:54] VITALS: BMI 30.7
[2023-05-25] MEDS: Ipratropium/Albuterol 3 ML NEB NEB SCH ×5 (00:15→23:30)
[2023-05-25 04:28] LABS: #Monocytes 0.1 thou/uL (0.11-0.59); #Neutrophils 6.6 thou/uL (1.40-6.50); %Basophils 0.3 % (0.0-1.0); %Lymphocytes 8.6 % (21.0-51.0); %Monocytes 1.2 % (0.0-10.0); Hematocrit 52.5 % (36.0-47.0); Hemoglobin 15.2 g/dL (12.0-16.0); Mean Corpuscular Hemoglobin 25.1 pg (27.0-31.0); Mean Corpuscular Volume 86.8 fl (78.0-98.0); Platelet Count 190 10x3/uL (130-400); Red Blood Cell (RBC) Count 6.05 mill/uL (4.20-5.40); White Blood Cell (WBC) Count 7.5 10x3/uL (4.8-10.8)
[2023-05-25 04:57] LABS: ALT (SGPT) 18 U/L (8-55); AST (SGOT) 15 U/L (5-34); Albumin 3.7 g/dL (3.4-4.8); Alkaline Phosphatase 136 U/L (40-110); Anion Gap 15 mmol/L (10-20); BUN (Urea Nitrogen) 17 mg/dL (9.8-20.1); Bilirubin, Total 0.8 mg/dL (0.2-1.2); Calc. Creatinine Clearance 51 mL/min (70-130); Calcium 9.8 mg/dL (7.8-10.44); Carbon Dioxide 33 mmol/L (23-31); Chloride 94 mmol/L (98-107); Estimated GFR 39; Globulin 2.4 g/dL (2.4-3.5); Glucose 266 mg/dL (80-115); Magnesium 1.8 mg/dL (1.6-2.6); Potassium 4.3 mmol/L (3.5-5.1); Protein, Total 6.1 g/dL (5.8-8.1); Sodium 138 mmol/L (136-145)
[2023-05-25] MEDS: Furosemide 40 MG/4 ML VIAL SLOW IVP SCH ×2 (05:28→14:46)
[2023-05-25] MEDS: HumaLOG 300 UNITS/3 ML VIAL SC PRN ×3 (05:42→20:15)
[2023-05-25] MEDS ORDERED: FLU VACC QS2023(65UP)/MF59C/PF 60 MCG/0.5 ML SYRINGE IM ONE (09:00)
[2023-05-25] MEDS: Carvedilol 6.25 MG TAB PO SCH ×2 (09:40→20:13)
[2023-05-25] MEDS: Cholecalciferol 1,000 UNITS (25 MCG) TAB PO SCH (09:40)
[2023-05-25] MEDS: Aspirin 81 mg Enteric Coated Tablet PO SCH (09:41)
[2023-05-25] MEDS: Spironolactone 25 MG TAB PO SCH (09:41)
[2023-05-25] MEDS: Amlodipine 10 MG TAB PO SCH (09:41)
[2023-05-25] MEDS: Doxycycline 100 MG CAP PO SCH ×2 (09:41→20:13)
[2023-05-25] MEDS: methylPREDNISolone Sod Succ 40 MG VIAL IVP SCH ×3 (09:42→20:13)
[2023-05-25] MEDS ORDERED: Insulin Glargine 30 UNITS/0.3 ML VIAL SC SCH (11:00)
[2023-05-25] MEDS: Empagliflozin 25 MG TAB PO SCH (17:21)
[2023-05-25] MEDS: metFORMIN 500 MG TAB PO SCH (17:23)
[2023-05-25] MEDS: Atorvastatin Calcium 20 MG TAB PO SCH (20:13)
[2023-05-26 04:36] LABS: #Monocytes 0.1 thou/uL (0.11-0.59); #Neutrophils 5.9 thou/uL (1.40-6.50); %Basophils 0.2 % (0.0-1.0); %Lymphocytes 6.3 % (21.0-51.0); %Neutrophils 90.4 % (42.0-75.0); Hematocrit 52.9 % (36.0-47.0); Hemoglobin 15.1 g/dL (12.0-16.0); Mean Corpuscular HGB CONC 28.5 g/dL (32.0-36.0); Mean Corpuscular Hemoglobin 24.7 pg (27.0-31.0); Mean Corpuscular Volume 86.6 fl (78.0-98.0); Platelet Count 195 10x3/uL (130-400); RBC Distribution Width 18.9 % (11.5-14.5); Red Blood Cell (RBC) Count 6.11 mill/uL (4.20-5.40); White Blood Cell (WBC) Count 6.5 10x3/uL (4.8-10.8)
[2023-05-26 05:09] LABS: Anion Gap 16 mmol/L (10-20); BUN (Urea Nitrogen) 28 mg/dL (9.8-20.1); Calc. Creatinine Clearance 42 mL/min (70-130); Carbon Dioxide 35 mmol/L (23-31); Chloride 92 mmol/L (98-107); Estimated GFR 32; Magnesium 1.9 mg/dL (1.6-2.6); Potassium 4.7 mmol/L (3.5-5.1); Sodium 138 mmol/L (136-145)
[2023-05-26 05:10] LABS: Anisocytosis SLIGHT = 6-15 cells HPF (0-5); CellaVision Operator ID lab.abc; Platelet Adequacy Comment Platelets Normal; Polychromasia MODERATE = 3-4 cells HPF (0-2)
[2023-05-26 05:30] LABS: Glucose 447 mg/dL (80-115)
[2023-05-26] MEDS: HumaLOG 300 UNITS/3 ML VIAL SC PRN ×4 (05:38→21:43)
[2023-05-26] MEDS: Furosemide 40 MG/4 ML VIAL SLOW IVP SCH ×2 (05:38→13:52)
[2023-05-26] MEDS: Ipratropium/Albuterol 3 ML NEB NEB SCH ×3 (08:13→19:48)
[2023-05-26] MEDS ORDERED: Insulin Glargine 30 UNITS/0.3 ML VIAL SC SCH (09:00)
[2023-05-26] MEDS ORDERED: HumaLOG 300 UNITS/3 ML VIAL SC PRN (09:21)
[2023-05-26] MEDS ORDERED: methylPREDNISolone Sod Succ 40 MG VIAL IVP SCH ×2 (09:45→21:00)
[2023-05-26] MEDS: Doxycycline 100 MG CAP PO SCH ×2 (09:52→21:42)
[2023-05-26] MEDS: metFORMIN 500 MG TAB PO SCH (09:52)
[2023-05-26] MEDS: Spironolactone 25 MG TAB PO SCH (09:52)
[2023-05-26] MEDS: Empagliflozin 25 MG TAB PO SCH (09:52)
[2023-05-26] MEDS: Cholecalciferol 1,000 UNITS (25 MCG) TAB PO SCH (09:52)
[2023-05-26] MEDS: Carvedilol 6.25 MG TAB PO SCH ×2 (09:53→21:42)
[2023-05-26] MEDS: Amlodipine 10 MG TAB PO SCH (09:53)
[2023-05-26] MEDS: Aspirin 81 mg Enteric Coated Tablet PO SCH (09:53)
[2023-05-26] MEDS: methylPREDNISolone Sod Succ 40 MG VIAL IVP SCH (10:21)
[2023-05-26] MEDS: Insulin Glargine 30 UNITS/0.3 ML VIAL SC SCH (21:42)
[2023-05-26] MEDS: Atorvastatin Calcium 20 MG TAB PO SCH (21:42)
[2023-05-27] MEDS: Ipratropium/Albuterol 3 ML NEB NEB SCH ×3 (01:30→12:45)
[2023-05-27 04:55] LABS: #Monocytes 0.6 thou/uL (0.11-0.59); #Neutrophils 6.9 thou/uL (1.40-6.50); %Basophils 0.1 % (0.0-1.0); %Lymphocytes 8.4 % (21.0-51.0); %Monocytes 6.9 % (0.0-10.0); %Neutrophils 84.1 % (42.0-75.0); Hematocrit 55.2 % (36.0-47.0); Mean Corpuscular Hemoglobin 25.1 pg (27.0-31.0); Mean Corpuscular Volume 86.7 fl (78.0-98.0); Platelet Count 208 10x3/uL (130-400); RBC Distribution Width 18.9 % (11.5-14.5); Red Blood Cell (RBC) Count 6.37 mill/uL (4.20-5.40); White Blood Cell (WBC) Count 8.1 10x3/uL (4.8-10.8)
[2023-05-27 05:15] LABS: Anion Gap 14 mmol/L (10-20); BUN (Urea Nitrogen) 32 mg/dL (9.8-20.1); Calc. Creatinine Clearance 52 mL/min (70-130); Calcium 10.5 mg/dL (7.8-10.44); Carbon Dioxide 37 mmol/L (23-31); Chloride 91 mmol/L (98-107); Estimated GFR 42; Glucose 250 mg/dL (80-115); Sodium 138 mmol/L (136-145)
[2023-05-27] MEDS: Furosemide 40 MG/4 ML VIAL SLOW IVP SCH (06:01)
[2023-05-27] MEDS ORDERED: Ferrous Sulfate 325 MG TAB PO SCH (08:00)
[2023-05-27] MEDS: Doxycycline 100 MG CAP PO SCH (08:25)
[2023-05-27] MEDS: Insulin Glargine 30 UNITS/0.3 ML VIAL SC SCH (08:26)
[2023-05-27] MEDS: Carvedilol 6.25 MG TAB PO SCH (08:27)
[2023-05-27] MEDS: Amlodipine 10 MG TAB PO SCH (08:28)
[2023-05-27] MEDS: Spironolactone 25 MG TAB PO SCH (08:28)
[2023-05-27] MEDS: Aspirin 81 mg Enteric Coated Tablet PO SCH (08:28)
[2023-05-27] MEDS ORDERED: Cholecalciferol 1,000 UNITS (25 MCG) TAB PO SCH (09:00)
[2023-05-27] MEDS ORDERED: methylPREDNISolone Sod Succ 40 MG VIAL IVP SCH (09:00)
[2023-05-27] MEDS ORDERED: Fluticasone Propionate Nasal Spray 16 gm Bottle NASAL SCH (09:00)
[2023-05-27] MEDS ORDERED: Famotidine 20 MG TAB PO SCH (09:00)
[2023-05-27 12:01] VITALS: BP 118/65; TEMP 97.7
== END 2023-05-27 13:55 | disposition home or self-care (01) | DRG 280 ==
LOC: SUATTDRO 12:00 → ERS 12:00 → ERHOLD 15:17 → 2NO 21:27
PROVIDERS: ADMIT Internal Medicine; ATTEND Internal Medicine
DX: I13.0 Hypertensive heart and chronic kidney disease with heart failure and stage 1 through stage 4 chronic kidney disease, or unspecified chronic kidney disease (principal); I50.33 Acute on chronic diastolic (congestive) heart failure; I21.A1 Myocardial infarction type 2; J96.21 Acute and chronic respiratory failure with hypoxia; J44.1 Chronic obstructive pulmonary disease with (acute) exacerbation; E66.9 Obesity, unspecified; E11.22 Type 2 diabetes mellitus with diabetic chronic kidney disease; G47.33 Obstructive sleep apnea (adult) (pediatric); E11.65 Type 2 diabetes mellitus with hyperglycemia; E78.5 Hyperlipidemia, unspecified; N18.30 Chronic kidney disease, stage 3 unspecified; Z79.899 Other long term (current) drug therapy; Z79.51 Long term (current) use of inhaled steroids; Z99.81 Dependence on supplemental oxygen; Z68.29 Body mass index [BMI] 29.0-29.9, adult; Z79.82 Long term (current) use of aspirin
CPT/HCPCS: 36415; 36416; 71045; 80048; 80053; 80061; 82043; 83036; 83735; 83880; 84484; 85025; 85379; 93005; 93798; 94640; 96365; 96375; J1650; J1815; J1940; J2920; J3475; J7512; J7620

== ENCOUNTER 2023-08-01 08:08 | Inpatient (IN) | payer MEDICARE, OTHER ==
[2023-08-01] MEDS ORDERED: Ipratropium Bromide 2.5 ml Neb ONE ×2 (08:21→10:27)
[2023-08-01] MEDS ORDERED: Albuterol 2.5 MG (3 mL) NEB ONE ×2 (08:21→10:27)
[2023-08-01 08:30] LABS: Actual Bicarbonate (HCO3a) 43.9 mEq/L (22-28); Analyzer IN Cardio ER; Base Excess (BEa) 11.5 mEq/L (-2.0 to +3.0); Calcium, Ionized (arterial) 1.16 mmol/L (1.12-1.30); Carboxyhemoglobin (COHb) 3.4 gm% (0.0-3.0); Hematocrit-ABG 47 % (36.0-47.0); Hemoglobin (Hb) 15.9 g/dL (12.0-16.0); Potassium - ABG Lab 2.98 mmol/L (3.70-5.30); pH, Arterial 7.259 (7.35-7.45)
[2023-08-01 08:51] LABS: #Eosinphils 0.1 thou/uL (0.0-0.7); #Monocytes 0.6 thou/uL (0.11-0.59); #Neutrophils 7.4 thou/uL (1.40-6.50); %Basophils 0.4 % (0.0-1.0); %Eosinophils 0.6 % (0.0-10.0); %Lymphocytes 11.2 % (21.0-51.0); %Monocytes 6.2 % (0.0-10.0); %Neutrophils 80.3 % (42.0-75.0); Hematocrit 55.8 % (36.0-47.0); Hemoglobin 15.7 g/dL (12.0-16.0); Mean Corpuscular HGB CONC 28.1 g/dL (32.0-36.0); Mean Corpuscular Hemoglobin 26.4 pg (27.0-31.0); Mean Corpuscular Volume 93.9 fl (78.0-98.0); Mean Platelet Volume 13.3 fL (7.4-10.4); Platelet Count 174 10x3/uL (130-400); RBC Distribution Width 18.6 % (11.5-14.5); Red Blood Cell (RBC) Count 5.94 mill/uL (4.20-5.40); White Blood Cell (WBC) Count 9.3 10x3/uL (4.8-10.8)
[2023-08-01] MEDS ORDERED: Cefepime 2 GM VIAL ONE (08:53)
[2023-08-01] MEDS ORDERED: methylPREDNISolone Sod Succ/PF 125 MG/2 ML VIAL ONE (08:53)
[2023-08-01] MEDS ORDERED: Furosemide 40 MG (4 mL) VIAL ONE (08:53)
[2023-08-01 09:38] LABS: CO2 Tension 100.4 mmHg (35.0-45.0); O2 Tension (PaO2), arterial 55.5 mmHg (> 80.0); Puncture Site LRA
[2023-08-01 09:51] LABS: ALT (SGPT) 19 U/L (8-55); AST (SGOT) 23 U/L (5-34); Albumin 3.9 g/dL (3.4-4.8); Alkaline Phosphatase 147 U/L (40-110); BUN (Urea Nitrogen) 12 mg/dL (9.8-20.1); Bilirubin, Total 1.8 mg/dL (0.2-1.2); Calc. Creatinine Clearance 0 mL/min (70-130); Calcium 9.1 mg/dL (7.8-10.44); Estimated GFR 54; Globulin 3.1 g/dL (2.4-3.5); Glucose 297 mg/dL (80-115)
[2023-08-01 09:57] LABS: Actual Bicarbonate (HCO3a) 38.7 mEq/L (22-28); Analyzer IN Cardio ER; Calcium, Ionized (arterial) 1.16 mmol/L (1.12-1.30); Carboxyhemoglobin (COHb) 3.1 gm% (0.0-3.0); Hematocrit-ABG 46 % (36.0-47.0); Hemoglobin (Hb) 15.8 g/dL (12.0-16.0); Potassium - ABG Lab 3.14 mmol/L (3.70-5.30); pH, Arterial 7.279 (7.35-7.45)
[2023-08-01 10:01] LABS: Troponin I 0.024 ng/mL (< 0.028)
[2023-08-01] MEDS ORDERED: LevoFLOXacin 750 mg/D5W 150 ml Premix Bag ONE (10:54)
[2023-08-01 10:56] LABS: Anisocytosis SLIGHT = 6-15 cells (100X) (0-5/hpf)
[2023-08-01 10:57] LABS: Platelet Adequacy Comment Appears Adequate
[2023-08-01 11:14] LABS: CO2 Tension 84.4 mmHg (35.0-45.0); O2 Tension (PaO2), arterial 59.3 mmHg (> 80.0); Puncture Site LRA
[2023-08-01] MEDS ORDERED: Bisacodyl 10 MG SUPP PR PRN (11:21)
[2023-08-01] MEDS ORDERED: Ipratropium/Albuterol 3 ML NEB NEB PRN (11:21)
[2023-08-01] MEDS ORDERED: Acetaminophen 325 MG TAB PO PRN (11:21)
[2023-08-01] MEDS ORDERED: Bisacodyl 5 MG TAB PO PRN (11:21)
[2023-08-01] MEDS ORDERED: Ondansetron PF 4 MG/2 ML Vial IVP PRN (11:21)
[2023-08-01] MEDS ORDERED: Senokot S 8.6-50 MG TAB PO PRN (11:21)
[2023-08-01] MEDS ORDERED: VANCOMYCIN IVPB PRN (11:30)
[2023-08-01] MEDS ORDERED: CEFEPIME IVPB PRN (11:30)
[2023-08-01] MEDS ORDERED: LEVOFLOXACIN IVPB PRN (11:30)
[2023-08-01 11:31] LABS: Carbon Dioxide 62 mmol/L (23-31)
[2023-08-01] MEDS ORDERED: Dextrose 50% Abboject 50 ML SYRINGE SLOW IVP PRN (11:32)
[2023-08-01] MEDS ORDERED: Dextrose 5% in Water 1,000 ML IV PRN (11:32)
[2023-08-01] MEDS ORDERED: HumaLOG 300 UNITS/3 ML VIAL SC PRN (11:32)
[2023-08-01] MEDS ORDERED: Glucagon 1 MG/ML KIT IM PRN (11:32)
[2023-08-01 11:56] LABS: Anion Gap 19 mmol/L (10-20); Chloride 92 mmol/L (98-107); Potassium 2.8 mmol/L (3.5-5.1); Sodium 145 mmol/L (136-145)
[2023-08-01 11:56] LABS: SARS-CoV-2 NAA Rapid Test Not Detected (NotDetected)
[2023-08-01] MEDS ORDERED: Vancomycin (BATCH) 2 GM in Premix 1 BAG IVPB SCH (12:00)
[2023-08-01 12:06] LABS: #Monocytes 0.1 thou/uL (0.11-0.59); %Basophils 0.3 % (0.0-1.0); %Eosinophils 0.1 % (0.0-10.0); %Lymphocytes 8.2 % (21.0-51.0); %Monocytes 1.3 % (0.0-10.0); %Neutrophils 88.8 % (42.0-75.0); Hematocrit 54.3 % (36.0-47.0); Hemoglobin 15.4 g/dL (12.0-16.0); Mean Corpuscular HGB CONC 28.4 g/dL (32.0-36.0); Mean Corpuscular Hemoglobin 26.7 pg (27.0-31.0); Mean Corpuscular Volume 94.3 fl (78.0-98.0); Mean Platelet Volume 11.7 fL (7.4-10.4); Platelet Count 151 10x3/uL (130-400); RBC Distribution Width 18.2 % (11.5-14.5); Red Blood Cell (RBC) Count 5.76 mill/uL (4.20-5.40); White Blood Cell (WBC) Count 6.7 10x3/uL (4.8-10.8)
[2023-08-01 12:35] LABS: Hemoglobin A1c 9.2 % (4.0-6.0)
[2023-08-01] MEDS ORDERED: Potassium Chloride 20 MEQ (100 mL) BAG ONE ×2 (12:42)
[2023-08-01] MEDS ORDERED: Electrolyte Replacement Protocol 1 EACH FS SCH (12:45)
[2023-08-01] MEDS ORDERED: Potassium Bicarbonate/Cit Ac 20 MEQ TAB ONE (12:56)
[2023-08-01] MEDS: Ipratropium/Albuterol 3 ML NEB NEB SCH ×3 (14:36→22:28)
[2023-08-01] MEDS ORDERED: Electrolyte Replacement Protocol FS PRN (15:00)
[2023-08-01] MEDS: methylPREDNISolone Sod Succ 40 MG VIAL IVP SCH ×2 (15:42→17:17)
[2023-08-01] MEDS: Potassium Chloride 20 MEQ in Premix 1 BAG IVPB SCH ×2 (15:42)
[2023-08-01] MEDS: Furosemide 40 MG (4 mL) VIAL SLOW IVP SCH (15:42)
[2023-08-01] MEDS: HumaLOG 300 UNITS/3 ML VIAL SC PRN (17:24)
[2023-08-01 17:59] LABS: Legionella Urinary Ag Negative (Negative); Strep pneumo Urine Ag NEGATIVE (NEGATIVE)
[2023-08-01] MEDS ORDERED: Mometasone/Formoterol 200/5 60 PUFF INH SCH (18:30)
[2023-08-01] MEDS ORDERED: guaiFENesin ER 600 MG TAB PO PRN (19:57)
[2023-08-01] MEDS: Cefepime 2 GM in Sodium Chloride 0.9% 100 ML IVPB SCH (20:11)
[2023-08-01] MEDS ORDERED: Vancomycin 1 GM in Sodium Chloride 0.9% 250 ML 300 ML IVPB SCH (21:00)
[2023-08-01] MEDS: Atorvastatin Calcium 20 MG TAB PO SCH (21:36)
[2023-08-01] MEDS: Vancomycin HCl 750 MG in Sodium Chloride 0.9% 250 ML 250 ML IVPB SCH (23:57)
[2023-08-02] MEDS: Ipratropium/Albuterol 3 ML NEB NEB SCH ×6 (02:38→22:44)
[2023-08-02] MEDS: Furosemide 40 MG (4 mL) VIAL SLOW IVP SCH ×2 (06:13→14:13)
[2023-08-02] MEDS: methylPREDNISolone Sod Succ 40 MG VIAL IVP SCH ×5 (06:17→23:35)
[2023-08-02] MEDS: HumaLOG 300 UNITS/3 ML VIAL SC PRN ×3 (06:20→18:37)
[2023-08-02 06:46] LABS: #Monocytes 0.1 thou/uL (0.11-0.59); #Neutrophils 3.7 thou/uL (1.40-6.50); %Lymphocytes 11.8 % (21.0-51.0); %Monocytes 2.5 % (0.0-10.0); Hematocrit 52.1 % (36.0-47.0); Mean Corpuscular HGB CONC 28.8 g/dL (32.0-36.0); Mean Corpuscular Hemoglobin 26.7 pg (27.0-31.0); Mean Corpuscular Volume 92.7 fl (78.0-98.0); Mean Platelet Volume 13.2 fL (7.4-10.4); Platelet Count 159 10x3/uL (130-400); RBC Distribution Width 18.1 % (11.5-14.5); Red Blood Cell (RBC) Count 5.62 mill/uL (4.20-5.40); White Blood Cell (WBC) Count 4.4 10x3/uL (4.8-10.8)
[2023-08-02 07:10] LABS: ALT (SGPT) 13 U/L (8-55); AST (SGOT) 12 U/L (5-34); Albumin 3.7 g/dL (3.4-4.8); Alkaline Phosphatase 118 U/L (40-110); Anion Gap 20 mmol/L (10-20); BUN (Urea Nitrogen) 16 mg/dL (9.8-20.1); Bilirubin, Direct 0.6 mg/dL (0.1-0.3); Bilirubin, Total 1.3 mg/dL (0.2-1.2); Calc. Creatinine Clearance 68 mL/min (70-130); Calcium 9.5 mg/dL (7.8-10.44); Carbon Dioxide 37 mmol/L (23-31); Chloride 93 mmol/L (98-107); Estimated GFR 58; Glucose 283 mg/dL (80-115); Magnesium 1.5 mg/dL (1.6-2.6); Potassium 3.6 mmol/L (3.5-5.1); Protein, Total 6.6 g/dL (5.8-8.1); Sodium 146 mmol/L (136-145)
[2023-08-02] MEDS ORDERED: Magnesium 2 GM/50 ML(in water) 2 GM in Premix 1 BAG IVPB SCH (08:00)
[2023-08-02] MEDS: Carvedilol 6.25 MG TAB PO SCH ×2 (09:23→18:38)
[2023-08-02] MEDS: Aspirin 81 mg Enteric Coated Tablet PO SCH (09:23)
[2023-08-02] MEDS: Amlodipine 10 MG TAB PO SCH (09:24)
[2023-08-02] MEDS: Enoxaparin 40 MG (0.4 mL) SYRINGE SC SCH (09:24)
[2023-08-02] MEDS: Pantoprazole 40 MG VIAL IVP SCH (09:25)
[2023-08-02] MEDS: Cefepime 2 GM in Sodium Chloride 0.9% 100 ML IVPB SCH (09:25)
[2023-08-02] MEDS: Vancomycin HCl 750 MG in Sodium Chloride 0.9% 250 ML 250 ML IVPB SCH ×2 (11:53→23:35)
[2023-08-02] MEDS: LevoFLOXacin 750 mg/D5W 750 MG in Premix 1 BAG IVPB SCH (11:54)
[2023-08-02] MEDS ORDERED: Insulin Glargine 30 UNITS/0.3 ML VIAL SC SCH (17:00)
[2023-08-02] MEDS: Cefepime 1 GM in Sodium Chloride 0.9% 100 ML IVPB SCH (20:23)
[2023-08-02] MEDS: Atorvastatin Calcium 20 MG TAB PO SCH (20:24)
[2023-08-03 00:28] LABS: Vancomycin, Trough 16.9 ug/mL
[2023-08-03] MEDS: Ipratropium/Albuterol 3 ML NEB NEB SCH ×6 (02:31→22:58)
[2023-08-03] MEDS: Furosemide 40 MG (4 mL) VIAL SLOW IVP SCH ×2 (05:54→15:56)
[2023-08-03] MEDS: methylPREDNISolone Sod Succ 40 MG VIAL IVP SCH ×3 (05:54→18:34)
[2023-08-03 05:55] LABS: #Monocytes 0.3 thou/uL (0.11-0.59); %Basophils 0.1 % (0.0-1.0); %Lymphocytes 7.5 % (21.0-51.0); %Monocytes 3.1 % (0.0-10.0); %Neutrophils 88.3 % (42.0-75.0); Hematocrit 54.5 % (36.0-47.0); Hemoglobin 15.9 g/dL (12.0-16.0); Mean Corpuscular HGB CONC 29.2 g/dL (32.0-36.0); Mean Corpuscular Hemoglobin 26.7 pg (27.0-31.0); Mean Corpuscular Volume 91.6 fl (78.0-98.0); Mean Platelet Volume 11.7 fL (7.4-10.4); Platelet Count 166 10x3/uL (130-400); RBC Distribution Width 17.8 % (11.5-14.5); Red Blood Cell (RBC) Count 5.95 mill/uL (4.20-5.40); White Blood Cell (WBC) Count 9.1 10x3/uL (4.8-10.8)
[2023-08-03 06:50] LABS: BUN (Urea Nitrogen) 21 mg/dL (9.8-20.1); Calc. Creatinine Clearance 0 mL/min (70-130); Calcium 9.8 mg/dL (7.8-10.44); Estimated GFR 61; Glucose 249 mg/dL (80-115); Magnesium 1.9 mg/dL (1.6-2.6)
[2023-08-03] MEDS ORDERED: Magnesium 2 GM/50 ML(in water) 2 GM in Premix 1 BAG IVPB SCH (08:30)
[2023-08-03] MEDS: Cefepime 1 GM in Sodium Chloride 0.9% 100 ML IVPB SCH (08:36)
[2023-08-03] MEDS: Amlodipine 10 MG TAB PO SCH (08:37)
[2023-08-03] MEDS: Enoxaparin 40 MG (0.4 mL) SYRINGE SC SCH (08:37)
[2023-08-03] MEDS: Pantoprazole 40 MG VIAL IVP SCH (08:37)
[2023-08-03] MEDS: Carvedilol 6.25 MG TAB PO SCH ×2 (08:37→15:56)
[2023-08-03] MEDS: Aspirin 81 mg Enteric Coated Tablet PO SCH (08:38)
[2023-08-03 08:43] LABS: Anion Gap 26 mmol/L (10-20); Carbon Dioxide 31 mmol/L (23-31); Chloride 90 mmol/L (98-107); Potassium 4.5 mmol/L (3.5-5.1); Sodium 142 mmol/L (136-145)
[2023-08-03] MEDS ORDERED: Insulin Glargine 30 UNITS/0.3 ML VIAL SC SCH ×2 (09:00→17:30)
[2023-08-03] MEDS: Vancomycin HCl 750 MG in Sodium Chloride 0.9% 250 ML 250 ML IVPB SCH (13:41)
[2023-08-03] MEDS: LevoFLOXacin 750 mg/D5W 750 MG in Premix 1 BAG IVPB SCH (15:56)
[2023-08-03 19:58] LABS: Critical Call Chemistry NUR.AK3 @1957; Glucose 563 mg/dL (80-115)
[2023-08-03] MEDS: Atorvastatin Calcium 20 MG TAB PO SCH (21:41)
[2023-08-03] MEDS: HumaLOG 300 UNITS/3 ML VIAL SC PRN (21:45)
[2023-08-04] MEDS: HumaLOG 300 UNITS/3 ML VIAL SC PRN ×3 (00:22→19:46)
[2023-08-04] MEDS: Ipratropium/Albuterol 3 ML NEB NEB SCH ×6 (02:19→22:13)
[2023-08-04] MEDS: Furosemide 40 MG (4 mL) VIAL SLOW IVP SCH ×2 (06:13→14:31)
[2023-08-04] MEDS: methylPREDNISolone Sod Succ 40 MG VIAL IVP SCH (06:13)
[2023-08-04] MEDS ORDERED: Insulin Glargine 30 UNITS/0.3 ML VIAL SC SCH ×2 (09:00→18:15)
[2023-08-04 09:07] LABS: #Monocytes 0.4 thou/uL (0.11-0.59); #Neutrophils 5.6 thou/uL (1.40-6.50); %Basophils 0.2 % (0.0-1.0); %Lymphocytes 5.9 % (21.0-51.0); %Monocytes 5.8 % (0.0-10.0); %Neutrophils 87.3 % (42.0-75.0); Hematocrit 53.7 % (36.0-47.0); Mean Corpuscular HGB CONC 29.8 g/dL (32.0-36.0); Mean Corpuscular Hemoglobin 26.2 pg (27.0-31.0); Platelet Count 183 10x3/uL (130-400); White Blood Cell (WBC) Count 6.4 10x3/uL (4.8-10.8)
[2023-08-04] MEDS: Enoxaparin 40 MG (0.4 mL) SYRINGE SC SCH (09:08)
[2023-08-04] MEDS: Carvedilol 6.25 MG TAB PO SCH ×2 (09:09→19:40)
[2023-08-04] MEDS: Aspirin 81 mg Enteric Coated Tablet PO SCH (09:09)
[2023-08-04] MEDS: Amlodipine 10 MG TAB PO SCH (09:10)
[2023-08-04 09:31] LABS: BUN (Urea Nitrogen) 30 mg/dL (9.8-20.1); Calc. Creatinine Clearance 73 mL/min (70-130); Calcium 9.5 mg/dL (7.8-10.44); Estimated GFR 60; Glucose 198 mg/dL (80-115)
[2023-08-04 09:36] LABS: Carbon Dioxide Greater than 37 mmol/L (23-31); Chloride 87 mmol/L (98-107); Potassium 3.5 mmol/L (3.5-5.1); Sodium 137 mmol/L (136-145)
[2023-08-04 09:37] LABS: Anion Gap 16 mmol/L (10-20)
[2023-08-04] MEDS: LevoFLOXacin 750 mg/D5W 750 MG in Premix 1 BAG IVPB SCH (11:31)
[2023-08-04] MEDS ORDERED: Magnesium 2 GM/50 ML(in water) 2 GM in Premix 1 BAG IVPB SCH (13:00)
[2023-08-04] MEDS ORDERED: Potassium Chloride 20 MEQ TAB PO SCH (13:00)
[2023-08-04] MEDS: Pantoprazole 40 MG VIAL IVP SCH (13:42)
[2023-08-04] MEDS: Atorvastatin Calcium 20 MG TAB PO SCH (20:18)
[2023-08-04 22:08] LABS: Mycoplasma pneumoniae IgG AB 344 U/mL (0-99); Mycoplasma pneumoniae IgM AB Less than 770 U/mL (0-769)
[2023-08-05] MEDS: HumaLOG 300 UNITS/3 ML VIAL SC PRN ×2 (00:12→12:32)
[2023-08-05] MEDS: Ipratropium/Albuterol 3 ML NEB NEB SCH ×4 (02:15→14:56)
[2023-08-05 06:32] LABS: #Neutrophils 5.6 thou/uL (1.40-6.50); %Eosinophils 0.4 % (0.0-10.0); %Lymphocytes 11.1 % (21.0-51.0); %Monocytes 12.8 % (0.0-10.0); %Neutrophils 75.2 % (42.0-75.0); Hematocrit 50.4 % (36.0-47.0); Hemoglobin 15.1 g/dL (12.0-16.0); Mean Corpuscular Hemoglobin 26.8 pg (27.0-31.0); Mean Corpuscular Volume 89.5 fl (78.0-98.0); Mean Platelet Volume 13.4 fL (7.4-10.4); Platelet Count 192 10x3/uL (130-400); RBC Distribution Width 17.2 % (11.5-14.5); Red Blood Cell (RBC) Count 5.63 mill/uL (4.20-5.40); White Blood Cell (WBC) Count 7.5 10x3/uL (4.8-10.8)
[2023-08-05 06:45] VITALS: BMI 31.9
[2023-08-05] MEDS: Furosemide 40 MG (4 mL) VIAL SLOW IVP SCH ×2 (06:45→15:18)
[2023-08-05 07:04] LABS: BUN (Urea Nitrogen) 33 mg/dL (9.8-20.1); Calc. Creatinine Clearance 64 mL/min (70-130); Calcium 9.4 mg/dL (7.8-10.44); Estimated GFR 51; Glucose 133 mg/dL (80-115); Magnesium 2.3 mg/dL (1.6-2.6)
[2023-08-05 07:14] LABS: Anion Gap 15 mmol/L (10-20); Carbon Dioxide 38 mmol/L (23-31); Chloride 86 mmol/L (98-107); Potassium 3.2 mmol/L (3.5-5.1); Sodium 136 mmol/L (136-145)
[2023-08-05] MEDS: Aspirin 81 mg Enteric Coated Tablet PO SCH (08:32)
[2023-08-05] MEDS: Amlodipine 10 MG TAB PO SCH (08:32)
[2023-08-05] MEDS: Pantoprazole 40 MG VIAL IVP SCH (08:33)
[2023-08-05] MEDS: Carvedilol 6.25 MG TAB PO SCH (08:33)
[2023-08-05] MEDS: Enoxaparin 40 MG (0.4 mL) SYRINGE SC SCH (08:34)
[2023-08-05] MEDS ORDERED: methylPREDNISolone Sod Succ 40 MG VIAL IVP SCH (09:00)
[2023-08-05] MEDS ORDERED: Insulin Glargine 30 UNITS/0.3 ML VIAL SC SCH (09:00)
[2023-08-05] MEDS: LevoFLOXacin 750 mg/D5W 750 MG in Premix 1 BAG IVPB SCH (11:04)
[2023-08-05 11:11] VITALS: TEMP 97.5
[2023-08-05] MEDS ORDERED: Potassium Chloride 20 MEQ TAB PO SCH (11:30)
[2023-08-05 15:12] VITALS: BP 147/63
== END 2023-08-05 16:22 | disposition home or self-care (01) | DRG 291 ==
LOC: ERS 08:08 → SUATTDRO 08:08 → ERHOLD 12:20 → IMCU/EMU 15:35
PROVIDERS: ADMIT Family Medicine; ATTEND Internal Medicine
PROC: 4A133R1 Monitoring of Arterial Saturation, Peripheral, Percutaneous Approach (ICD-10-PCS; principal; 2023-08-01)
PROC: 5A09357 Assistance with Respiratory Ventilation, Less than 24 Consecutive Hours, Continuous Positive Airway Pressure (ICD-10-PCS; 2023-08-01)
DX: I13.0 Hypertensive heart and chronic kidney disease with heart failure and stage 1 through stage 4 chronic kidney disease, or unspecified chronic kidney disease (principal); I50.33 Acute on chronic diastolic (congestive) heart failure; J96.21 Acute and chronic respiratory failure with hypoxia; J96.22 Acute and chronic respiratory failure with hypercapnia; J44.1 Chronic obstructive pulmonary disease with (acute) exacerbation; E87.29 Other acidosis; N17.9 Acute kidney failure, unspecified; E87.4 Mixed disorder of acid-base balance; E87.6 Hypokalemia; N18.30 Chronic kidney disease, stage 3 unspecified; F10.90 Alcohol use, unspecified, uncomplicated; E80.6 Other disorders of bilirubin metabolism; G47.33 Obstructive sleep apnea (adult) (pediatric); E11.9 Type 2 diabetes mellitus without complications; Z96.651 Presence of right artificial knee joint; Z79.899 Other long term (current) drug therapy; Z79.82 Long term (current) use of aspirin; Z98.51 Tubal ligation status; Z90.49 Acquired absence of other specified parts of digestive tract; Z98.890 Other specified postprocedural states; Z87.891 Personal history of nicotine dependence; Z11.52 Encounter for screening for COVID-19
CPT/HCPCS: 36415; 36416; 36600; 71045; 74230; 80048; 80053; 80076; 80202; 82805; 83036; 83605; 83735; 83880; 84145; 84443; 84484; 85025; 86850; 86900; 86901; 87040; 87081; 87449; 87899; 93005; 93798; 94640; 94644; 94660; 94760; 96365; 96366; 96367; 96375; C9113; J0692; J1650; J1815; J1940; J1956; J2920; J2930; J3370; J3475; J3480; J3490; J7050; J7611; J7620

== ENCOUNTER 2023-09-15 13:42 | Outpatient (CLI) | payer MEDICARE, OTHER | END 2023-09-15 13:43 | disposition home or self-care (01) | LOC: BICMAMMO 13:42 | PROVIDERS: ATTEND Family Medicine | DX: Z12.31 Encounter for screening mammogram for malignant neoplasm of breast (principal); Z91.89 Other specified personal risk factors, not elsewhere classified | CPT/HCPCS: 77063; 77067 ==

== ENCOUNTER 2024-07-10 13:58 | Outpatient (CLI) | payer MEDICARE, OTHER | END 2024-07-10 13:59 | disposition home or self-care (01) | LOC: RAD 13:58 | PROVIDERS: ATTEND Internal Medicine Critical Care Medicine | DX: R06.00 Dyspnea, unspecified (principal) | CPT/HCPCS: 71046 ==